=== PATIENT | male | born 1990 | race Caucasian/White ===

== ENCOUNTER 2017-05-20 21:46 | Emergency (ER) | payer SELFPAY ==
[2017-05-20 21:49] VITALS: BP 147/98; PULSE 107; RESP 16; TEMP 98.3; O2SAT 97
--- NOTE | 2017-05-20 22:33 | RADRPT ---
EXAM DATE/TIME: 05/20/2017 22:04 [place] COMPARISON: No previous studies available for comparison. INDICATIONS : Pain and swelling left knee, fell MEDICAL HISTORY : None. SURGICAL HISTORY : None. ENCOUNTER: Initial ACUITY: 1 week PAIN SCORE: 8/10 LOCATION: Left Knee FINDINGS: There is no evidence of fracture or dislocation. Mineralization is normal. No destructive changes are identified. There does appear to be a moderate suprapatellar effusion. CONCLUSION: Joint effusion. No acute bony findings. Sean Alvarado MD on May 20, 2017 at 22:31 Board Certified Radiologist. This report was verified electronically.
[2017-05-20] MEDS ORDERED: DICL75TA PO (22:58)
[2017-05-20] MEDS ORDERED: NAPROXEN 500 MG TAB PO ONE (23:00)
--- NOTE | 2017-05-20 23:10 | PD ---
HPI Chief Complaint: Medical Clearance Time Seen by Provider: 22:48 Travel History International Travel<30 days: No Contact w/Intl Traveler<30days: No Traveled to known affect area: No History of Present Illness HPI 26-year-old white male presents emergency department with complaints of left knee pain. 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 He states that he is fell striking his left knee. Since then it has become swollen and painful. He reported this to his supervisor [employer] who advised him to come to the ER. The patient denies any numbness or tingling. He states the pain is mild. Worse with ambulation. Some relief with elevation. He denies any prior injury. PFSH Past Medical History Narrative Medical Bipolar, Bipolar Disorder: Yes Depression: Yes Psychiatric: Yes Tetanus Vaccination: < 5 Years Influenza Vaccination: Yes Past Surgical History Surgical History: No Previous Surgery Social History Alcohol Use: No Tobacco Use: Yes (04/02 ppd) Substance Use: No Allergies-Medications (Allergen,Severity, Reaction): Coded Allergies: No Known Allergies (Unverified , 05/20/17) Reported Meds & Prescriptions Reported Meds & Active Scripts Active Diclofenac Sodium DR (Diclofenac Sodium) 75 Mg Tabdr 75 Mg PO BID Review of Systems General / Constitutional: No: Fever Eyes: No: Visual changes HENT: No: Headaches Cardiovascular: No: Chest Pain or Discomfort Respiratory: No: Shortness of Breath Gastrointestinal: No: Abdominal Pain Genitourinary: No: Dysuria Musculoskeletal: Positive: Arthralgias, Limited ROM, Edema, Pain, No: Myalgias , Weakness Skin: No Rash Neurologic: No: Weakness Psychiatric: No: Depression Endocrine: No: Polydipsia Hematologic/Lymphatic: No: Easy Bruising Physical Exam Narrative GENERAL: This is a well-nourished, well-developed patient, in no apparent distress. The patient appears somnolent. His speech is slow and slurred. He appears to be under the influence of drugs or alcohol. SKIN: First-degree solar burn, ecchymoses or lesions. Warm and dry. HEAD: Atraumatic. Normocephalic. EYES: PERRL, EOMI, no discharge or injection. No scleral icterus. EARS: Clear NOSE: Nasal turbinates appear normal. THROAT: Mucosa pink and moist. Airway patent. NECK: Trachea midline. supple, moves head freely. LUNGS: Clear to auscultation. CV: Regular in rhythm. ABDOMEN: Soft nontender. EXT: No clubbing cyanosis. Examination of the left lower extremity reveals a joint effusion in the knee. He has some mild global discomfort without point localization. There is a small area of ecchymosis to the proximal anterior pretibial region. There is no gross instability. No medial lateral collateral ligament instability. No anterior posterior drawer. He has full extension but has limited flexion due to pain. No pain in the foot, ankle, hip. The right lower extremity as well as the upper extremities are without localizing bony tenderness or deformity. Patient does ambulate with a mildly antalgic gait. Data Data Last Documented VS Vital Signs Date Time Temp Pulse Resp B/P (MAP) Pulse Ox O2 Delivery O2 Flow Rate FiO2 05/20/17 21:49 98.3 107 16 147/98 (114) 97 Orders Orders Knee, Complete (4vws) (05/20/17 ) Ice/Cold Pack (05/20/17 22:55) Splint Or Brace Apply/Monitor (05/20/17 22:55) Crutches (05/20/17 22:55) Naproxen (Naprosyn) (05/20/17 23:00) Ed Discharge Order (05/20/17 22:56) MDM Medical Decision Making Medical Screen Exam Complete: Yes Emergency Medical Condition: Yes Medical Record Reviewed: Yes Interpretation(s) Last 24 hours Impressions Knee X-Ray 05/20/17 0000 Signed Impressions: Service Date/Time: Saturday, May 20, 2017 22:04 - CONCLUSION: Joint effusion. No acute bony findings. Sean Alvarado MD Differential Diagnosis MDM: High Differential diagnoses: Fracture, sprain, strain, dislocation, contusion, neurovascular injury Narrative Course X-ray of the left knee is negative for bony injury. He does have a joint effusion. Patient was given Naprosyn 500 mg p.o., Kash wrap and crutches. The patient does appear to be under the influence of substances. I do not believe he requires narcotics. The patient does state that he is staying at [facility] the [facility]. He has only been released from residential less than 1 month. Patient has refused to fill out workman's comp paperwork. Diagnosis Primary Impression: Left knee contusion Additional Impression: Left knee sprain Patient Instructions: General Instructions Departure Forms: Tests/Procedures, Work Release Special Instructions: Patient no work 3 days. Additional Instructions: Rest. Elevation. Ice packs for the next 3 days. Kash wrap and crutches. No weight-bearing and then progress to weight-bearing as tolerated. Medications as directed. Sunscreen with SPF of 15 or greater. Aveeno baths. Aloevera with lidocaine. Wear a hat and long sleeves. Follow-up with an orthopedist or your doctor in one week. Return to the ER if any problems Med/Other Pt SpecificInfo: Prescription(s) given Scripts Diclofenac Sodium DR (Diclofenac Sodium DR) 75 Mg Tabdr 75 MG PO BID, #20 TAB 0 Refills Prov: Zane Kwok MD 05/20/17 Disposition: 01 DISCHARGE HOME Condition: Stable Javan Mercedes May 20, 2017 23:10
== END 2017-05-20 23:22 | disposition home or self-care (01) ==
LOC: NEPD 21:46
DX: S80.02XA Contusion of left knee, initial encounter (principal); S83.92XA Sprain of unspecified site of left knee, initial encounter; F31.9 Bipolar disorder, unspecified; F17.210 Nicotine dependence, cigarettes, uncomplicated; W19.XXXA Unspecified fall, initial encounter; W22.8XXA Striking against or struck by other objects, initial encounter; Y99.0 Civilian activity done for income or pay
CPT/HCPCS: 73564; 99283; E0113